=== PATIENT | male | born 1940 | race Caucasian/White ===

== ENCOUNTER 2025-01-19 13:05 | Outpatient (CLI) | payer MEDICARE, OTHER ==
[2025-01-19 13:54] LABS: Estimated GFR - POC 60.0
== END 2025-01-19 13:06 | disposition home or self-care (01) ==
LOC: CT 13:05
PROVIDERS: ATTEND Thoracic Surgery (Cardiothoracic Vascular Surgery)
DX: I70.202 Unspecified atherosclerosis of native arteries of extremities, left leg (principal); I77.1 Stricture of artery; I70.8 Atherosclerosis of other arteries; K76.89 Other specified diseases of liver
CPT/HCPCS: 75635; 82565

== ENCOUNTER 2025-01-26 05:55 | Day surgery (SDC) | payer MEDICARE, OTHER ==
[2025-01-21 10:51] VITALS: BMI 27.8
[2025-01-26] MEDS ORDERED: Heparin 10,000 UNITS/ 10 ML VIAL ONE (06:12)
[2025-01-26] MEDS ORDERED: Adenosine 6 mg (2 mL) VIAL ONE (06:12)
[2025-01-26] MEDS ORDERED: Lidocaine 1% (PF) 30 ML VIAL ONE ×2 (06:13→07:19)
[2025-01-26] MEDS ORDERED: Nitroglycerin 50 MG/250 ML BOT 0 ML ONE (06:13)
[2025-01-26] MEDS ORDERED: Iopamidol 370 76% 100 ML VIAL ONE (13:22)
== END 2025-01-26 12:00 | disposition home or self-care (01) ==
LOC: SDC 05:55
PROVIDERS: ATTEND Thoracic Surgery (Cardiothoracic Vascular Surgery)
PROC: 04HY33Z Insertion of Infusion Device into Lower Artery, Percutaneous Approach (ICD-10-PCS; principal; 2025-01-26)
DX: I73.9 Peripheral vascular disease, unspecified (principal); I10 Essential (primary) hypertension; E78.5 Hyperlipidemia, unspecified; Z79.899 Other long term (current) drug therapy
CPT/HCPCS: 36140; 36247; 37228; 75710; 85347 ×2; C1725; J1644; J2003; J3010; 75625; 75716; 75774; C1760; C1769; C1887; C1894; J0153; J2250; Q9967

== ENCOUNTER 2025-02-05 08:45 | Day surgery (SDC) | payer MEDICARE, OTHER ==
[2025-02-04 12:09] VITALS: BMI 27.8
[~2025-02-05 08:45] MED LIST: Fluorouracil 100 MG, Enoxaparin 25 MG, EPINEPHrine 0.3 MG in Ophthalmic Irrigation Solu... IRR SCH
[2025-02-05] MEDS ORDERED: Cyclopentolate 1% Opth Drop 2 ML BOT ONE (09:44)
[2025-02-05] MEDS ORDERED: Lidocaine 1% PF 5 ML VIAL ONE ×2 (09:58→11:26)
[2025-02-05 10:25] LABS: #Basophils 0.04 10x3/uL (0.0-0.2); #Eosinophils 0.35 10x3/uL (0.0-0.7); #Monocytes 0.76 10x3/uL (0.11-0.59); #Neutrophils 3.21 10x3/uL (1.40-6.50); %Basophils 0.7 % (0.0-1.0); %Eosinophils 5.9 % (0.0-10.0); %Lymphocytes 25.8 % (21.0-51.0); %Monocytes 12.9 % (0.0-10.0); %Neutrophils 54.5 % (42.0-75.0); Hematocrit 36.2 % (42.0-52.0); Hemoglobin 12.0 g/dL (14.0-18.0); Mean Corpuscular Hemoglobin 32.3 pg (27.0-31.0); Mean Corpuscular Volume 97.3 fL (78.0-98.0); Platelet Count 175 10x3/uL (130-400); Red Blood Cell (RBC) Count 3.72 mill/uL (4.70-6.10); White Blood Cell (WBC) Count 5.89 10x3/uL (4.8-10.8)
[2025-02-05 10:43] LABS: Anion Gap 3 mmol/L (10-20); BUN (Urea Nitrogen) 24 mg/dL (8.4-25.7); Calc. Creatinine Clearance 65 mL/min (70-130); Calcium 8.9 mg/dL (7.8-10.44); Carbon Dioxide 24 mmol/L (23-31); Chloride 110 mmol/L (98-107); Glucose 98 mg/dL (83-110); Potassium 4.3 mmol/L (3.5-5.1); Sodium 133 mmol/L (136-145)
[2025-02-05] MEDS ORDERED: PROPOFOL 200 MG/20 ML VIAL ONE (11:26)
[2025-02-05] MEDS ORDERED: Lidocaine 4% PF 5 ML AMP ONE (11:26)
[2025-02-05] MEDS ORDERED: CEFAZOLIN 1 GM VIAL ONE (11:26)
[2025-02-05] MEDS ORDERED: Enoxaparin 30 MG (0.3 mL) SYRINGE ONE (11:26)
[2025-02-05] MEDS ORDERED: Maxitrol 0.1% Opth Oint 3.5 GM TUBE ONE (11:26)
== END 2025-02-05 13:13 | disposition home or self-care (01) ==
LOC: SDC 08:45
PROVIDERS: ATTEND Ophthalmology Retina Specialist
PROC: 08T53ZZ Resection of Left Vitreous, Percutaneous Approach (ICD-10-PCS; principal; 2025-02-05)
DX: H33.012 Retinal detachment with single break, left eye (principal); Z95.1 Presence of aortocoronary bypass graft; Z90.49 Acquired absence of other specified parts of digestive tract; Z88.8 Allergy status to other drugs, medicaments and biological substances
CPT/HCPCS: 67025; 67108; 80048; 85025; 93005; J0166; J0690; J1650; J2003; J2704; J3010; J3301; J3490; J9190; 93010